=== PATIENT | female | born 1985 | race Caucasian/White ===

== ENCOUNTER 2017-02-19 22:08 | Emergency (ER) | payer BC ==
[2017-02-19] MEDS ORDERED: IMITREX100 M2 PO (23:11)
[2017-02-19] MEDS ORDERED: PROGESTERONE (23:12)
[2017-02-19] MEDS ORDERED: [UNRECOGNIZED DRUG - OTHER] PO (23:13)
[2017-02-19] MEDS ORDERED: BELSOMRA10 MG PO (23:15)
[2017-02-19] MEDS ORDERED: KLONOPIN1 M1 PO (23:15)
[2017-02-19] MEDS ORDERED: [UNRECOGNIZED DRUG - REMARK] (23:16)
== END 2017-02-20 01:05 ==
LOC: EDMED 22:08
DX: G43.909 Migraine, unspecified, not intractable, without status migrainosus (principal); F41.9 Anxiety disorder, unspecified; G40.909 Epilepsy, unspecified, not intractable, without status epilepticus; Z79.899 Other long term (current) drug therapy; Z90.49 Acquired absence of other specified parts of digestive tract
CPT/HCPCS: J1885; J7030